=== PATIENT | female | born 1960 | race American Indian/Alaskan Native ===

== ENCOUNTER 2016-07-25 13:52 | Emergency (ER) | payer MEDICARE ==
[2016-07-25 14:31] LABS: Basophils % (Auto) 0.5 % (0.0-1.8); Eosinophils % (Auto) 0.9 % (0.0-4.3); Hematocrit 35.9 % (30.3-42.9); Hemoglobin 12.1 gm/dl (10.1-14.3); Mean Corpuscular HGB Conc 34 % (30-34); Mean Corpuscular Hemoglobin 29 pg (28-32); Mean Corpuscular Volume 87 fl (79-97); Platelet Count 198 K/mm3 (140-440); Red Blood Count 4.11 M/mm3 (3.65-5.03); Red Cell Distribution Width 14.2 % (13.2-15.2)
[2016-07-25 15:11] LABS: Alanine Aminotransferase 22 units/L (7-56); Albumin 4.3 g/dL (3.9-5); Albumin/Globulin Ratio 1.3 %; Alkaline Phosphatase 76 units/L (35-129); Blood Urea Nitrogen 12 mg/dL (7-17); Calcium 9.4 mg/dL (8.4-10.2); Carbon Dioxide 25 mmol/L (22-30); Glucose 101 mg/dL (65-100); Lipase 31 units/L (13-60); Total Protein 7.6 g/dL (6.3-8.2)
[2016-07-25 15:12] LABS: Anion Gap 20 mmol/L; Chloride 104.1 mmol/L (98-107); Potassium 3.9 mmol/L (3.6-5.0); Sodium 145 mmol/L (137-145)
[2016-07-25 15:22] LABS: Creatine Kinase 71 units/L (30-135); Creatine Kinase MB < 1.0 ng/mL (0.0-4.0)
[2016-07-25 15:26] LABS: Bilirubin,Urine Negative (Negative); Blood,Urine Negative (Negative); Ketones,Urine Trace mg/dL (Negative); Leukocyte Esterase,Urine Large (Negative); Nitrite,Urine Negative (Negative); RBC,Urine < 1.0 /HPF (0.0-6.0); Urobilinogen,Urine < 2.0 mg/dL (<2.0); WBC,Urine < 1.0 /HPF (0.0-6.0)
[2016-07-25 15:27] LABS: Bacteria,Urine 1+ /HPF (Negative); Mucus,Urine Few /HPF
[2016-07-26] MEDS ORDERED: NACL 0.9% 1000 ML 1,000 ML IV ONE (01:58)
[2016-07-26] MEDS ORDERED: ZOFRAN IV ONE (01:58)
[2016-07-26] MEDS ORDERED: PEPCID IV ONE (01:58)
[2016-07-26] MEDS ORDERED: BENTYL IM ONE (01:59)
[2016-07-26] MEDS ORDERED: TYLENOL PO ONE (01:59)
--- NOTE | 2016-07-26 02:00 | Emergency Department Report ---
ED General Adult HPI - General Chief complaint: Abdominal Pain Stated complaint: ABD PAIN/BLOATED Time Seen by Provider: 07/26/16 01:47 Source: patient, RN notes reviewed Mode of arrival: Ambulatory Limitations: No Limitations - History of Present Illness Initial comments: This is a 56-year-old female. She is previously unknown to me. Primary neurologist: Dr. Jose Foster Cardiology: Dr Resendez ([facility]ly [facility]) Past medical history: Depression, gastric ulcer, multiple sclerosis The patient presents to the ER today with abdominal bloating and distention. The patient reports intermittent bloody stools over the past few days. She reports this feels similar to her prior episode of GI bleed. This is being going on for the past few days. She reports her symptoms decrease when she eats food. They worse when she lays back. There is no leg pain. There is no leg swelling. No recent trips greater than 4 hours. No recent hospitalizations. -: Gradual Location: abdomen Quality: aching Consistency: intermittent Improves with: eating, rest Worsens with: movement Associated Symptoms: loss of appetite. denies: confusion, chest pain, cough, fever/chills, headaches, shortness of breath - Related Data Home Medications Medication Instructions Recorded Confirmed Last Taken Atenolol [Tenormin] 25 mg PO DAILY 11/30/12 06/17/14 06/17/14 Gabapentin 100 mg PO DAILY 11/30/12 06/17/14 06/17/14 Nortriptyline [Pamelor] 10 mg PO QHS 11/30/12 06/17/14 06/17/14 Citalopram Hydrobromide [celeXA] 40 mg PO DAILY 06/17/14 06/17/14 06/17/14 Previous Rx's Medication Instructions Recorded Last Taken Type Acetaminophen/Codeine [Tylenol #3] 1 tab PO Q8HR #20 tablet 06/17/14 Unknown Rx Dicyclomine [Bentyl] 10 mg PO QID PRN #20 capsule 07/26/16 Unknown Rx Famotidine [Pepcid] 20 mg PO QDAY #30 tablet 07/26/16 Unknown Rx Ondansetron [Zofran Odt] 4 mg PO QID PRN #20 tab.rapdis 07/26/16 Unknown Rx Allergies Allergy/AdvReac Type Severity Reaction Status Date / Time aspirin AdvReac Vomiting Verified 08/04/14 11:30 ED Review of Systems ROS: Stated complaint: ABD PAIN/BLOATED Other details as noted in HPI Constitutional: denies: fever, malaise Eyes: denies: vision change ENT: denies: hearing loss Respiratory: denies: cough Cardiovascular: denies: chest pain Gastrointestinal: abdominal pain, hematochezia Genitourinary: denies: dysuria Musculoskeletal: myalgia Skin: denies: lesions Neurological: weakness Psychiatric: as per HPI ED Past Medical Hx - Past Medical History Hx Hypertension: Yes Hx Psychiatric Treatment: Yes (depression) Additional medical history: MS,gastric ulcer - Surgical History Additional Surgical History: hysterectomy. . toe surgery - Social History Smoking Status: Current Some Day Smoker Substance Use Type: Alcohol - Medications Home Medications: Home Medications Medication Instructions Recorded Confirmed Last Taken Type Atenolol [Tenormin] 25 mg PO DAILY 11/30/12 06/17/14 06/17/14 History Gabapentin 100 mg PO DAILY 11/30/12 06/17/14 06/17/14 History Nortriptyline [Pamelor] 10 mg PO QHS 11/30/12 06/17/14 06/17/14 History Acetaminophen/Codeine [Tylenol #3] 1 tab PO Q8HR #20 tablet 06/17/14 Unknown Rx Citalopram Hydrobromide [celeXA] 40 mg PO DAILY 06/17/14 06/17/14 06/17/14 History Dicyclomine [Bentyl] 10 mg PO QID PRN #20 capsule 07/26/16 Unknown Rx Famotidine [Pepcid] 20 mg PO QDAY #30 tablet 07/26/16 Unknown Rx Ondansetron [Zofran Odt] 4 mg PO QID PRN #20 tab.rapdis 07/26/16 Unknown Rx ED Physical Exam - General Limitations: No Limitations General appearance: alert, in no apparent distress - Head Head exam: Present: atraumatic, normocephalic - Eye Eye exam: Present: normal appearance, EOMI. Absent: nystagmus - ENT ENT exam: Present: normal exam, normal orophraynx, mucous membranes moist - Neck Neck exam: Present: normal inspection, full ROM. Absent: tenderness, meningismus - Respiratory Respiratory exam: Present: normal lung sounds bilaterally. Absent: respiratory distress, wheezes, rales, rhonchi, stridor, chest wall tenderness, accessory muscle use, decreased breath sounds - Cardiovascular Cardiovascular Exam: Present: regular rate, normal rhythm, normal heart sounds. Absent: bradycardia, tachycardia, irregular rhythm, systolic murmur, diastolic murmur, rubs, gallop - GI/Abdominal GI/Abdominal exam: Present: soft, tenderness, normal bowel sounds, other (there is mild right upper quadrant and right periumbilical tenderness. There is no rebound, guarding or peritoneal signs). Absent: distended, guarding, rebound, rigid, pulsatile mass - Rectal Rectal exam: Present: normal inspection, normal rectal tone, heme (-) stool, other (during rectal examination, I am escorted by nurse Arnold avery) - Extremities Exam Extremities exam: Present: normal inspection, full ROM, normal capillary refill. Absent: tenderness, pedal edema, joint swelling, calf tenderness - Back Exam Back exam: Present: normal inspection, full ROM. Absent: tenderness, CVA tenderness (R), CVA tenderness (L), muscle spasm, paraspinal tenderness, vertebral tenderness - Neurological Exam Neurological exam: Present: alert, oriented X3, normal gait, other (Extraocular movements intact. Tongue midline. No facial droop. Facial sensation intact to light touch in the V1, V2, V3 distribution bilaterally. 5 and 5 strength in 4 extremities.. Sensation is intact to light touch in 4 extremities.). Absent : motor sensory deficit - Psychiatric Psychiatric exam: Present: normal affect, normal mood - Skin Skin exam: Present: warm, dry, intact, normal color. Absent: rash ED Course Vital Signs 07/25/16 07/26/16 07/26/16 14:08 01:53 03:00 Temperature 98.5 F 98 F Pulse Rate 110 H 100 H 90 Respiratory 18 16 16 Rate Blood Pressure 151/109 Blood Pressure 154/78 152/81 [Left] O2 Sat by Pulse 100 100 100 Oximetry - Reevaluation(s) Reevaluation #1: 07/26/16 02:45 differential diagnoses: Colitis, diverticulitis, malignancy, appendicitis, intra-abdominal infection, inflammatory bowel disease Assessment and plan: 56-year-old female with a few days of abdominal bloating, subjective distention, report of bloody stool. She is afebrile with reassuring vital signs, with no chest pain, negative troponin, in the context of 3-4 days of symptoms. No pulmonary embolus or DVT risk factors, low risk by well's criteria, low risk by BETTINA score, low risk by heart score. The patient has an abnormal EKG, but given her complaint of abdominal cramping, distention, and rectal bleeding, I don't believe the patient requires an acute coronary syndrome risk stratification at this time. She is guaiac-negative from below. She'll be treated symptomatically. A CT scan of the abdomen and pelvis is pending. Reevaluation #2: 07/26/16 04:[address] scan of the abdomen and pelvis is negative for significant disease. The patient indicates that she feels improved. The patient will be discharged at this time. She is instructed to follow up with outpatient gastroenterology. Return precautions are reviewed. ED Medical Decision Making - Lab Data Result diagrams: 07/25/16 14:18 07/25/16 14:18 Vital Signs 07/25/16 07/26/16 14:08 01:53 Temperature 98.5 F 98 F Pulse Rate 110 H 100 H Respiratory 18 16 Rate Blood Pressure 151/109 Blood Pressure 154/78 [Left] O2 Sat by Pulse 100 100 Oximetry Lab Results 07/25/16 07/25/16 07/25/16 Range/Units 14:18 14:18 14:18 WBC 8.0 (4.5-11.0) K/mm3 RBC 4.11 (3.65-5.03) M/mm3 Hgb 12.1 (10.1-14.3) gm/dl Hct 35.9 (30.3-42.9) % MCV 87 (79-97) fl MCH 29 (28-32) pg MCHC 34 (30-34) % RDW 14.2 (13.2-15.2) % Plt Count 198 (140-440) K/mm3 Lymph % (Auto) 27.4 (13.4-35.0) % [place] % (Auto) 7.7 H (0.0-7.3) % Eos % (Auto) 0.9 (0.0-4.3) % Baso % (Auto) 0.5 (0.0-1.8) % Lymph # 2.2 (1.2-5.4) K/mm3 [place] # 0.6 (0.0-0.8) K/mm3 Eos # 0.1 (0.0-0.4) K/mm3 Baso # 0.0 (0.0-0.1) K/mm3 Seg Neutrophils % 63.5 (40.0-70.0) % Seg Neutrophils # 5.1 (1.8-7.7) K/mm3 Sodium 145 (137-145) mmol/L Potassium 3.9 (3.6-5.0) mmol/L Chloride 104.1 (98-107) mmol/L Carbon Dioxide 25 (22-30) mmol/L Anion Gap 20 mmol/L BUN 12 (7-17) mg/dL Creatinine 0.8 (0.7-1.2) mg/dL Estimated GFR > 60 ml/min BUN/Creatinine Ratio 15.00 % Glucose 101 H (65-100) mg/dL Calcium 9.4 (8.4-10.2) mg/dL Total Bilirubin 0.30 (0.1-1.2) mg/dL AST 15 (5-40) units/L ALT 22 (7-56) units/L Alkaline Phosphatase 76 (35-129) units/L Total Creatine Kinase 71 (30-135) units/L CK-MB (CK-2) < 1.0 (0.0-4.0) ng/mL CK-MB (CK-2) Rel Index 1.4 (0-4) Troponin T < 0.010 (0.00-0.029) ng/mL Total Protein 7.6 (6.3-8.2) g/dL Albumin 4.3 (3.9-5) g/dL Albumin/Globulin Ratio 1.3 % Lipase 31 (13-60) units/L Urine Color (Yellow) Urine Turbidity (Clear) Urine pH (5.0-7.0) Ur Specific [place] (1.003-1.030) Urine Protein (Negative) mg/dL Urine Glucose (UA) (Negative) mg/dL Urine Ketones (Negative) mg/dL Urine Blood (Negative) Urine Nitrite (Negative) Urine Bilirubin (Negative) Urine Urobilinogen (<2.0) mg/dL Ur Leukocyte Esterase (Negative) Urine WBC (Auto) (0.0-6.0) /HPF Urine RBC (Auto) (0.0-6.0) /HPF Urine Bacteria (Auto) (Negative) /HPF Urine Mucus /HPF 07/25/16 Range/Units 14:41 WBC (4.5-11.0) K/mm3 RBC (3.65-5.03) M/mm3 Hgb (10.1-14.3) gm/dl Hct (30.3-42.9) % MCV (79-97) fl MCH (28-32) pg MCHC (30-34) % RDW (13.2-15.2) % Plt Count (140-440) K/mm3 Lymph % (Auto) (13.4-35.0) % [place] % (Auto) (0.0-7.3) % Eos % (Auto) (0.0-4.3) % Baso % (Auto) (0.0-1.8) % Lymph # (1.2-5.4) K/mm3 [place] # (0.0-0.8) K/mm3 Eos # (0.0-0.4) K/mm3 Baso # (0.0-0.1) K/mm3 Seg Neutrophils % (40.0-70.0) % Seg Neutrophils # (1.8-7.7) K/mm3 Sodium (137-145) mmol/L Potassium (3.6-5.0) mmol/L Chloride (98-107) mmol/L Carbon Dioxide (22-30) mmol/L Anion Gap mmol/L BUN (7-17) mg/dL Creatinine (0.7-1.2) mg/dL Estimated GFR ml/min BUN/Creatinine Ratio % Glucose (65-100) mg/dL Calcium (8.4-10.2) mg/dL Total Bilirubin (0.1-1.2) mg/dL AST (5-40) units/L ALT (7-56) units/L Alkaline Phosphatase (35-129) units/L Total Creatine Kinase (30-135) units/L CK-MB (CK-2) (0.0-4.0) ng/mL CK-MB (CK-2) Rel Index (0-4) Troponin T (0.00-0.029) ng/mL Total Protein (6.3-8.2) g/dL Albumin (3.9-5) g/dL Albumin/Globulin Ratio % Lipase (13-60) units/L Urine Color Yellow (Yellow) Urine Turbidity Slightly cloudy (Clear) Urine pH 5.0 (5.0-7.0) Ur Specific [place] 1.035 H (1.003-1.030) Urine Protein 30 mg/dl (Negative) mg/dL Urine Glucose (UA) Negative (Negative) mg/dL Urine Ketones Trace (Negative) mg/dL Urine Blood Negative (Negative) Urine Nitrite Negative (Negative) Urine Bilirubin Negative (Negative) Urine Urobilinogen < 2.0 (<2.0) mg/dL Ur Leukocyte Esterase Large (Negative) Urine WBC (Auto) < 1.0 (0.0-6.0) /HPF Urine RBC (Auto) < 1.0 (0.0-6.0) /HPF Urine Bacteria (Auto) 1+ (Negative) /HPF Urine Mucus Few /HPF - EKG Data -: EKG Interpreted by Me EKG shows normal: sinus rhythm - EKG Data 07/26/16 02:47 normal sinus, 92 bpm, normal axis, QTC 464 ms, poor R wave progression, abnormal EKG, not consistent with STEMI, when compared to prior EKG from September 2014, does not appear to have significant changes. - Radiology Data Radiology results: report reviewed, image reviewed interpreted by me: X-ray of the chest is negative for acute disease CT scan of the abdomen and pelvis is negative for acute disease. Diverticulosis is incidentally noted. Critical care attestation.: If time is entered above; I have spent that time in minutes in the direct care of this critically ill patient, excluding procedure time. ED Disposition Clinical Impression: History of rectal bleeding Disposition: DC-01 TO HOME OR SELFCARE Is pt being admited?: No Does the pt Need Aspirin: No Condition: Stable Instructions: Abdominal Pain (ED) Additional Instructions: Take the pain medication, and nausea medication as needed/directed. Follow up with a slot machine key person within the next month. It is very important to follow -up to have an evaluation for colonoscopy. Not following up for this in a timely fashion may resultant undiagnosed tumor/cancer/malignancy. Return to the ER right away with new pain, worsened pain, migration of pain, fevers or chills, intractable nausea or vomiting, confusion, inability to tolerate liquid feeds, new, worsening or different symptoms. [facility] is a local gastroenterology specialty group, and they have a patient service hotline which can be contacted to facilitate outpatient appointments: [email or web address] ([phone]) Prescriptions: Dicyclomine [Bentyl] 10 mg PO QID PRN #20 capsule PRN Reason: Pain Famotidine [Pepcid] 20 mg PO QDAY #30 tablet Ondansetron [Zofran Odt] 4 mg PO QID PRN #20 tab.rapdis PRN Reason: Nausea Referrals: PRIMARY CARE,MD [Primary Care Provider] - 3-5 Days ANJEL COHEN MD [Staff Physician] - 3-5 Days
[2016-07-26 03:14] VITALS: BP 152/81
--- NOTE | 2016-07-26 03:57 | Cat Scan Report ---
FINAL REPORT PROCEDURE: CT ABDOMEN PELVIS W CON TECHNIQUE: Computerized axial tomography of the abdomen and pelvis was performed after the IV injection of iodinated nonionic contrast. HISTORY: abd pain gi bleed COMPARISON: No prior studies are available for comparison. FINDINGS: Visualized lower thorax: No significant abnormality. Liver: Normal size and attenuation. Spleen: Normal size and attenuation. Gallbladder and biliary system: Normal. Pancreas: Normal. Adrenals: Normal. Kidneys: There is a 2 centimeters cyst in the midpole of the left kidney. There is a 1 centimeters cyst in the lower pole the right kidney. There are no kidney stones. There is no hydronephrosis or. GI tract: There are diverticula of the sigmoid and left colon. There is no diverticulitis or colitis. There is no obstruction or mass. The stomach and small bowel are unremarkable. The appendix is normal.. Lymph nodes and mesentery: Normal. Vasculature: Normal. Bladder: Normal. Reproductive organs: There has been a hysterectomy.. Peritoneum: There is no ascites, free air, abscess or adenopathy.. Musculoskeletal structures: No significant abnormality. Other: None. IMPRESSION: There is a 2 centimeters cyst in the midpole of the left kidney. There is a 1 centimeters cyst in the lower pole the right kidney. There are no kidney stones. There is no hydronephrosis or. There are diverticula of the sigmoid and left colon. There is no diverticulitis or colitis. There is no obstruction or mass. The stomach and small bowel are unremarkable. The appendix is normal.. There has been a hysterectomy.. There is no ascites, free air, abscess or adenopathy..
--- NOTE | 2016-07-26 10:27 | XRay Report ---
CHEST TWO VIEWS: 07/25/16 13:52:00 CLINICAL: Shortness of breath. COMPARISON: 05/04/10 FINDINGS: Normal heart and pulmonary vasculature. The lungs are normally expanded and clear. The bones and soft tissues are normal. IMPRESSION: Normal chest.
== END 2016-07-26 04:30 | disposition home or self-care (01) ==
LOC: ED 13:52
DX: R14.0 Abdominal distension (gaseous) (principal); I10 Essential (primary) hypertension; F17.210 Nicotine dependence, cigarettes, uncomplicated; F32.9 Major depressive disorder, single episode, unspecified; Z90.710 Acquired absence of both cervix and uterus; Z88.6 Allergy status to analgesic agent
CPT/HCPCS: 36415; 71020; 74177; 80053; 81001; 82271; 82550; 82553; 83690; 84484; 85025; 93005; 93010; 96361; 96372; 96374; 96375; 99285; J0500; J2405; J7030; Q9967

== ENCOUNTER 2016-11-14 12:50 | Emergency (ER) | payer MEDICARE ==
[2016-11-14 13:32] VITALS: BP 133/86
[2016-11-14] MEDS ORDERED: XYLOCAINE TOPICAL 5% TP ONE (14:13)
--- NOTE | 2016-11-14 14:13 | Emergency Department Report ---
- General Chief complaint: Earache Stated complaint: LEFT EAR PAIN Time Seen by Provider: 11/14/16 14:08 Source: patient Mode of arrival: Ambulatory Limitations: No Limitations - History of Present Illness Initial comments: History he reports that she got cotton tip stuck in her left ear and she is having left ear pain. Denies any drainage. Denies any fever or chills. Denies any headache. Denies any cough, congestion, runny nose. Denies any sore throat, shortness of breath or chest pain. She said the incident happened 2 hours prior to coming to the emergency room. She says she was trying to clean her left ear out and the tip of the cotton broke off into her ear. Denies any loss of hearing MD complaint: foreign body (in the left ear) -: This afternoon Tetanus Up to Date: yes Location: head (left ear) Severity: mild Severity scale (0 -10): 2 Quality: dull Consistency: constant Improves with: none Worsens with: none Context: other (attempting to clean ear out with cotton-tipped when the cotton part broke off into her ear) Associated symptoms: denies other symptoms Treatments Prior to Arrival: other (attempted to remove at home) - Related Data Home Medications Medication Instructions Recorded Confirmed Last Taken Atenolol [Tenormin] 25 mg PO DAILY 11/30/12 06/17/14 06/17/14 Gabapentin 100 mg PO DAILY 11/30/12 06/17/14 06/17/14 Nortriptyline [Pamelor] 10 mg PO QHS 11/30/12 06/17/14 06/17/14 Citalopram Hydrobromide [celeXA] 40 mg PO DAILY 06/17/14 06/17/14 06/17/14 Previous Rx's Medication Instructions Recorded Last Taken Type Acetaminophen/Codeine [Tylenol #3] 1 tab PO Q8HR #20 tablet 06/17/14 Unknown Rx Dicyclomine [Bentyl] 10 mg PO QID PRN #20 capsule 07/26/16 Unknown Rx Famotidine [Pepcid] 20 mg PO QDAY #30 tablet 07/26/16 Unknown Rx Ondansetron [Zofran Odt] 4 mg PO QID PRN #20 tab.rapdis 07/26/16 Unknown Rx Allergies Allergy/AdvReac Type Severity Reaction Status Date / Time aspirin AdvReac Mild Vomiting Verified 11/14/16 13:26 Abscess Boil HPI - HPI Chief Complaint: Earache Stated Complaint: LEFT EAR PAIN Time Seen by Provider: 11/14/16 14:08 Home Medications: Home Medications Medication Instructions Recorded Confirmed Last Taken Atenolol [Tenormin] 25 mg PO DAILY 11/30/12 06/17/14 06/17/14 Gabapentin 100 mg PO DAILY 11/30/12 06/17/14 06/17/14 Nortriptyline [Pamelor] 10 mg PO QHS 11/30/12 06/17/14 06/17/14 Citalopram Hydrobromide [celeXA] 40 mg PO DAILY 06/17/14 06/17/14 06/17/14 Previous Rx's Medication Instructions Recorded Last Taken Type Acetaminophen/Codeine [Tylenol #3] 1 tab PO Q8HR #20 tablet 06/17/14 Unknown Rx Dicyclomine [Bentyl] 10 mg PO QID PRN #20 capsule 07/26/16 Unknown Rx Famotidine [Pepcid] 20 mg PO QDAY #30 tablet 07/26/16 Unknown Rx Ondansetron [Zofran Odt] 4 mg PO QID PRN #20 tab.rapdis 07/26/16 Unknown Rx Allergies/Adverse Reactions: Allergies Allergy/AdvReac Type Severity Reaction Status Date / Time aspirin AdvReac Mild Vomiting Verified 11/14/16 13:26 ED Review of Systems ROS: Stated complaint: LEFT EAR PAIN Other details as noted in HPI Comment: All other systems reviewed and negative Constitutional: no symptoms reported Eyes: denies: eye pain, eye discharge, vision change ENT: ear pain, other (foreign body in the left ear). denies: throat pain, dental pain, hearing loss, congestion Respiratory: no symptoms reported. denies: shortness of breath Cardiovascular: denies: chest pain, palpitations, edema, syncope, paroxysmal nocturnal dyspnea Gastrointestinal: denies: nausea, vomiting Musculoskeletal: denies: back pain, joint swelling, arthralgia, myalgia Skin: denies: rash, lesions, change in color, pruritus Neurological: denies: headache, weakness, abnormal gait, vertigo ED Past Medical Hx - Past Medical History Previous Medical History?: Yes Hx Hypertension: Yes Hx Psychiatric Treatment: Yes (depression) Additional medical history: MS,gastric ulcer - Surgical History Past Surgical History?: Yes Additional Surgical History: hysterectomy. . toe surgery - Family History Family history: hypertension - Social History Smoking Status: Current Every Day Smoker Substance Use Type: None - Medications Home Medications: Home Medications Medication Instructions Recorded Confirmed Last Taken Type Atenolol [Tenormin] 25 mg PO DAILY 11/30/12 06/17/14 06/17/14 History Gabapentin 100 mg PO DAILY 11/30/12 06/17/14 06/17/14 History Nortriptyline [Pamelor] 10 mg PO QHS 11/30/12 06/17/14 06/17/14 History Acetaminophen/Codeine [Tylenol #3] 1 tab PO Q8HR #20 tablet 06/17/14 Unknown Rx Citalopram Hydrobromide [celeXA] 40 mg PO DAILY 06/17/14 06/17/14 06/17/14 History Dicyclomine [Bentyl] 10 mg PO QID PRN #20 capsule 07/26/16 Unknown Rx Famotidine [Pepcid] 20 mg PO QDAY #30 tablet 07/26/16 Unknown Rx Ondansetron [Zofran Odt] 4 mg PO QID PRN #20 tab.rapdis 07/26/16 Unknown Rx ED Physical Exam - General Limitations: No Limitations General appearance: alert, in no apparent distress - Head Head exam: Present: atraumatic, normocephalic, normal inspection - Eye Eye exam: Present: normal appearance, PERRL, EOMI. Absent: conjunctival injection, periorbital swelling, periorbital tenderness - ENT ENT exam: Present: normal orophraynx, mucous membranes moist, TM's normal bilaterally (noted ear canal partially occluded with quite soft object. Able to visualize eardrum which are pearly manzano and blood side), normal external ear exam, other (nasal mucosa without congestion or erythema. No drainage) - Neck Neck exam: Present: normal inspection, full ROM. Absent: tenderness, meningismus, lymphadenopathy - Respiratory Respiratory exam: Present: normal lung sounds bilaterally. Absent: respiratory distress, chest wall tenderness - Cardiovascular Cardiovascular Exam: Present: regular rate, normal rhythm, normal heart sounds. Absent: systolic murmur, diastolic murmur - Extremities Exam Extremities exam: Present: normal inspection, full ROM, normal capillary refill , other (all extremities with 2+ pulses. No neurovascular compromise. No clubbing cyanosis or edema.). Absent: tenderness, pedal edema, joint swelling, calf tenderness - Neurological Exam Neurological exam: Present: alert, oriented X3, normal gait, reflexes normal. Absent: motor sensory deficit - Psychiatric Psychiatric exam: Present: normal affect, normal mood - Skin Skin exam: Present: warm, dry, intact, normal color. Absent: rash ED Course Vital Signs 11/14/16 13:26 Temperature 98.2 F Pulse Rate 70 Respiratory 18 Rate Blood Pressure 133/86 O2 Sat by Pulse 99 Oximetry - Reevaluation(s) Reevaluation #1: 11/14/16 15:14 0.5 mL of lidocaine instilled in left ear to prepare for foreign body removal from left ear. See procedure note for details on foreign body removal - Foreign Body Removal Ear Location: ear canal (L) Foreign Body Suspected: other (cotton) If Insect Suspected: ear canal instilled with Foreign Body Removed: yes Foreign Body Removal Technique: instrumentation (alligator clips) Tympanic Membrane Intact: Yes (pearly manzano bilaterally) Patient Tolerated Procedure: well Complications: none Additional Comments: Bilateral ear canal without any redness, swelling or drainage. Bilateral tract is nontender to palpate and bilateral mastoid bone nontender to palpate ED Medical Decision Making - Medical Decision Making ED course: Here complaining that she has a piece of cotton in her left ear that when she was cleaning her ear and tried to remove a piece of cotton broke off into her ear. She says she was having ear pain. Physical findings for partial occlusion of left ear canal with white cotton-like material. Lidocaine 5% 0.5 mL instilled in ear canal. I was able to remove foreign body completely from ear canal which was a piece of cotton that came from Q-tip. Refer to procedure note for detail. I instructed patient to avoid put in foreign body in her ear. She said she is feeling better and discharged home in stable condition. Bilateral ear canal and TM normal. Pt has primary care physicians I instructed her to follow-up with primary care physician if she has any problem. Critical care attestation.: If time is entered above; I have spent that time in minutes in the direct care of this critically ill patient, excluding procedure time. ED Disposition Clinical Impression: Left ear pain, History of retained foreign body fully removed Foreign body of ear, left Qualifiers: Encounter type: initial encounter Qualified Code(s): T16.2XXA - Foreign body in left ear, initial encounter Disposition: - TO HOME OR SELFCARE Is pt being admited?: No Does the pt Need Aspirin: No Condition: Stable Instructions: Ear Foreign Body (ED), Earache (ED) Additional Instructions: avoid putting foreign object in the ears. Follow-up he is primary care physician in 3-5 days After foreign body removal, bilateral eardrum normal and lateral ear canal normal Referrals: PRIMARY CARE,MD [Primary Care Provider] - 3-5 Days Forms: Work/School Release Form(ED)
[2016-11-14] MEDS ORDERED: LIDOCAINE VISCOUS 2% ONE (14:43)
== END 2016-11-14 15:29 | disposition home or self-care (01) ==
LOC: ED 12:50
DX: T16.2XXA Foreign body in left ear, initial encounter (principal); H92.02 Otalgia, left ear; I10 Essential (primary) hypertension; F17.200 Nicotine dependence, unspecified, uncomplicated; Z88.8 Allergy status to other drugs, medicaments and biological substances
CPT/HCPCS: 99282